=== PATIENT | female | born 1990 | race Caucasian/White ===

== ENCOUNTER 2016-11-01 20:50 | Emergency (ER) | payer MEDICAID ==
[~2016-11-01] VITALS: Ht 175.3 cm; Wt 100.1 kg
[~2016-11-01 20:50] MED LIST: DIABETES MED; METF500T27 PO; ONDA4TAB10 PO
[2016-11-01] MEDS ORDERED: ALBU8.5H3 INH (21:32)
[2016-11-01] MEDS ORDERED: ONDANSETRON 2MG/ML, 2ML ONE (22:18)
[2016-11-01] MEDS ORDERED: KETOROLAC 30 MG/1 ML ONE (22:18)
[2016-11-01] MEDS ORDERED: ONDANSETRON 2MG/ML, 2ML IVPush ONE (22:30)
[2016-11-01] MEDS ORDERED: SODIUM CHLORIDE FLUSH 10ML SYR IVF ONE (22:30)
[2016-11-01] MEDS ORDERED: KETOROLAC 30 MG/1 ML IVPush ONE (22:30)
[2016-11-01] MEDS ORDERED: SODIUM CHLORIDE 0.9% 1,000ML IVBOLUS ONE (22:30)
[2016-11-01 23:13] LABS: BLOOD UREA NITROGEN 15 mg/dL (7-18)
[2016-11-01 23:15] LABS: ASPARTATE AMINO TRANSFERASE 36 U/L (15-37)
[2016-11-01 23:46] VITALS: BP 116/75
== END 2016-11-01 23:48 | disposition home or self-care (01) ==
LOC: ED 23:29
DX: R10.84 Generalized abdominal pain (principal); E11.65 Type 2 diabetes mellitus with hyperglycemia; J45.909 Unspecified asthma, uncomplicated; Z87.440 Personal history of urinary (tract) infections
CPT/HCPCS: 36415; 71010; 80053; 81003; 83690; 84703; 85025; 96361; 96374; 96375; 99285; J1885; J2405; J7030